=== PATIENT | male | born 1980 | race Caucasian/White ===

== ENCOUNTER 2022-12-31 08:57 | Outpatient (CLI) | payer OTHER | END 2022-12-31 08:58 | disposition home or self-care (01) | LOC: BICCT 08:57 | PROVIDERS: ATTEND Physician Assistant Surgical | DX: S42.352D Displaced comminuted fracture of shaft of humerus, left arm, subsequent encounter for fracture with routine healing (principal); S42.202D Unspecified fracture of upper end of left humerus, subsequent encounter for fracture with routine healing ==

== ENCOUNTER 2023-03-02 11:11 | Day surgery (SDC) | payer OTHER ==
[2023-03-01 14:39] VITALS: BMI 26.6
[2023-03-02] MEDS ORDERED: Bupivacaine PF 0.5% 30 ML VIAL ONE (12:20)
[2023-03-02] MEDS ORDERED: Bacitracin Zinc Ointment 30 gm TUBE ONE (12:20)
[2023-03-02] MEDS ORDERED: fentaNYL PF 100 MCG/2 ML SYRINGE ONE (13:01)
[2023-03-02] MEDS ORDERED: Sodium Chloride 0.9% 100 ML ONE (13:01)
[2023-03-02] MEDS ORDERED: CEFAZOLIN 2 GM VIAL ONE (13:01)
[2023-03-02] MEDS ORDERED: Dexamethasone 20 MG/5 ML VIAL ONE (13:03)
[2023-03-02] MEDS ORDERED: Ondansetron PF 4 MG/2 ML Vial ONE (13:03)
[2023-03-02] MEDS ORDERED: Lidocaine 1% PF 5 ML VIAL ONE (13:03)
[2023-03-02] MEDS ORDERED: PROPOFOL 200 MG/20 ML VIAL ONE (13:03)
[2023-03-02] MEDS ORDERED: fentaNYL 50 mcg/mL 1 mL Vial ONE (14:31)
[2023-03-02] MEDS ORDERED: Ketorolac Tromethamine 30 MG/ML VIAL ONE ×2 (15:00→15:10)
== END 2023-03-02 16:39 | disposition home or self-care (01) ==
LOC: SDC 11:11
PROVIDERS: ATTEND Orthopaedic Surgery Hand Surgery
PROC: 0PC00ZZ Extirpation of Matter from Sternum, Open Approach (ICD-10-PCS; principal; 2023-03-02)
DX: T84.84XA Pain due to internal orthopedic prosthetic devices, implants and grafts, initial encounter (principal); M25.832 Other specified joint disorders, left wrist; S63.592A Other specified sprain of left wrist, initial encounter; S52.252 Displaced comminuted fracture of shaft of ulna, left arm; Z98.890 Other specified postprocedural states; Z87.891 Personal history of nicotine dependence; Z91.040 Latex allergy status; X58.XXXA Exposure to other specified factors, initial encounter; Z79.899 Other long term (current) drug therapy
CPT/HCPCS: J1100; J1885; J2405; J2704; J3010; J3490; S0020

== ENCOUNTER → 2023-03-31 | Day surgery (SDC) | payer OTHER ==
[~2023-03-31] MED LIST: EPINEPHrine 1 MG/ML AMP ONE; Iopamidol 300 61% 100 ML VIAL FS ONE; Lidocaine 1% PF 5 ML VIAL ONE; Sodium Chloride 0.9% 50 ML BAG ONE
== END ==
LOC: RAD 09:56
PROVIDERS: ATTEND Orthopaedic Surgery
PROC: BP09YZZ Plain Radiography of Left Shoulder using Other Contrast (ICD-10-PCS; principal; 2023-03-31)
DX: M24.812 Other specific joint derangements of left shoulder, not elsewhere classified (principal)
CPT/HCPCS: 23350; J0171; Q9967